=== PATIENT | male | born 1975 | race Caucasian/White ===

== ENCOUNTER 2022-02-20 13:28 | Observation (INO) | payer OTHER, SELFPAY ==
[2022-02-20 15:57] VITALS: BMI 27.9
[2022-02-20] MEDS ORDERED: Dextrose 5% in Water 1,000 ML IV PRN (16:07)
[2022-02-20] MEDS ORDERED: Ondansetron ODT 4 MG TAB PO PRN (16:07)
[2022-02-20] MEDS ORDERED: hydrALAZINE 20 MG/ML VIAL SLOW IVP PRN (16:07)
[2022-02-20] MEDS ORDERED: Dextrose 50% Abboject 50 ML SYRINGE SLOW IVP PRN (16:07)
[2022-02-20] MEDS ORDERED: traMADol HCl 50 MG TAB PO PRN ×2 (16:10)
[2022-02-20] MEDS ORDERED: Sodium Chloride 0.9% 1,000 ML IV SCH (16:15)
[2022-02-20] MEDS ORDERED: Clindamycin 150 MG CAP PO SCH (16:30)
[2022-02-20] MEDS ORDERED: Scopolamine 1.5 mg/72 hour Patch TD SCH (17:00)
[2022-02-20] MEDS: Cyclobenzaprine 10 MG TAB PO PRN (17:07)
[2022-02-20] MEDS ORDERED: Acetaminophen 500 MG TAB PO SCH ×2 (18:00)
[2022-02-20] MEDS: Acetaminophen 325 MG TAB PO SCH (18:14)
[2022-02-20] MEDS: Famotidine 20 MG TAB PO SCH (20:48)
[2022-02-20] MEDS: Senokot S 8.6-50 MG TAB PO SCH (20:49)
[2022-02-20] MEDS: Clindamycin 150 MG CAP PO SCH (20:49)
[2022-02-20] MEDS: Acetaminophen/Codeine 30-300mg Tablet PO PRN (20:50)
[2022-02-21] MEDS: Acetaminophen 325 MG TAB PO SCH ×4 (00:03→18:09)
[2022-02-21] MEDS: Clindamycin 150 MG CAP PO SCH ×2 (05:15→18:09)
[2022-02-21] MEDS: Acetaminophen/Codeine 30-300mg Tablet PO PRN ×2 (05:18→12:25)
[2022-02-21] MEDS: Famotidine 20 MG TAB PO SCH (08:43)
[2022-02-21] MEDS: Senokot S 8.6-50 MG TAB PO SCH (08:44)
[2022-02-21] MEDS: Cyclobenzaprine 10 MG TAB PO PRN (08:54)
[2022-02-21] MEDS ORDERED: Saccharomyces boulardii 250 MG CAP PO SCH (09:00)
[2022-02-21] MEDS ORDERED: Polyethylene Glycol 3350 17 GM Packet PO SCH (09:00)
[2022-02-21 12:29] LABS: SARS-CoV-2 PCR NAA for Saliva Not Detected (NotDetected)
[2022-02-21 15:42] VITALS: BP 119/69; TEMP 98
== END 2022-02-21 18:09 | disposition home or self-care (01) ==
LOC: SJJU 15:12
PROVIDERS: ADMIT Surgery; ATTEND Surgery
DX: G93.89 Other specified disorders of brain (principal); S02.19XA Other fracture of base of skull, initial encounter for closed fracture; S02.122A Fracture of orbital roof, left side, initial encounter for closed fracture; S02.832A Fracture of medial orbital wall, left side, initial encounter for closed fracture; S02.31XA Fracture of orbital floor, right side, initial encounter for closed fracture; S06.0X9A Concussion with loss of consciousness of unspecified duration, initial encounter; S01.312A Laceration without foreign body of left ear, initial encounter; K21.9 Gastro-esophageal reflux disease without esophagitis; Z20.822 Contact with and (suspected) exposure to COVID-19; V80.918A Animal-rider injured in other transport accident, initial encounter
CPT/HCPCS: G0378; J7050; U0003; U0005